=== PATIENT | female | born 1980 | race Caucasian/White ===

== ENCOUNTER 2017-02-08 23:09 | Emergency (ER) | payer OTHER ==
[2017-02-08] MEDS ORDERED: Phenazopyridine 95 MG Tab PO ONE (23:43)
[2017-02-08] MEDS ORDERED: Ciprofloxacin 500 MG Tab PO ONE (23:43)
--- NOTE | 2017-02-08 23:43 | EDM.PDOC ---
ED HPI GENERAL MEDICAL PROBLEM - General Chief Complaint: Genitourinary Problem Stated Complaint: UTI Time Seen by Provider: 02/08/17 23:40 Source of Information: Reports: Patient History Limitations: Reports: No Limitations - History of Present Illness INITIAL COMMENTS - FREE TEXT/NARRATIVE: c/o recurrent UTI Sx since Sunday, worse tonight - Related Data Allergies Allergy/AdvReac Type Severity Reaction Status Date / Time No Known Allergies Allergy Verified 02/08/17 23:20 Home Meds: Home Meds . [No Known Home Meds] 06/17/15 [History] Past Medical History DIRECTOR MULTIMEDIA History: Reports: Spontaneous , Other (See Below) Other OB/BYN History: D&C Social & Family History - Family History Family Medical History: Noncontributory - Tobacco Use Smoking Status *Q: Never Smoker Used Tobacco, but Quit: Yes Month Tobacco Last Used: 2004 Second Hand Smoke Exposure: No - Caffeine Use Caffeine Use: Reports: Coffee - Recreational Drug Use Recreational Drug Use: No - Sexual History Sexual History: Reports: Sexually Active - Living Situation & Occupation Living situation: Reports: , with Family Occupation: Employed ED ROS GENERAL - Review of Systems Review Of Systems: ROS reveals no pertinent complaints other than HPI. ED EXAM, RENAL/ - Physical Exam Exam: See Below Exam Limited By: No Limitations General Appearance: Alert, WD/WN, Mild Distress, Other (discomfort) Ears: Hearing Grossly Normal Throat/Mouth: Normal Voice, No Airway Compromise Head: Atraumatic Neck: Non-Tender, Full Range of Motion Respiratory/Chest: No Respiratory Distress Cardiovascular: Regular Rate, Rhythm GI/Abdominal: Soft, Other (suprapubic discomfort) Neurological: Alert, Oriented, Normal Cognition, Normal Gait, No Motor/Sensory Deficits Psychiatric: Normal Affect, Normal Mood Skin Exam: Warm, Dry, Normal Color Lymphatic: No Adenopathy Course - Orders/Labs/Meds Orders: Active Orders 24 hr Category Date Time Status UA W/MICROSCOPIC [URIN] Stat Lab 02/08/17 23:18 Results Labs: Laboratory Tests 02/08/17 Range/Units 23:18 Urine Color Yellow (YELLOW) Urine Appearance Slightly cloudy (CLEAR) Urine pH 5.0 (5.0-9.0) Ur Specific [place] 1.025 (1.005-1.030) Urine Protein Negative (NEGATIVE) Urine Glucose (UA) Negative (NEGATIVE) Urine Ketones Negative (NEGATIVE) Urine Occult Blood Negative (NEGATIVE) Urine Nitrite Positive H (NEGATIVE) Urine Bilirubin Small H (NEGATIVE) Urine Urobilinogen 0.2 (0.2-1.0) mg/dL Ur Leukocyte Esterase Trace H (NEGATIVE) - Re-Assessments/Exams Free Text/Narrative Re-Assessment/Exam: 02/08/17 23:42 results discussed with pt. Departure - Departure Time of Disposition: 23:42 Disposition: Home, Self-Care 01 Condition: Good Clinical Impression: UTI, Urinary tract infectious disease - Discharge Information Instructions: Urinary Tract Infection, Adult, [id number] Additional Instructions: 1) drink lot of liquids 2) follow up at clinic or recheck as needed rx given; [id number] bid x 3 days pyridium 100mg tid prn x 12 - My Orders Last 24 Hours: My Active Orders 02/08/17 23:18 UA W/MICROSCOPIC [URIN] Stat - Assessment/Plan Last 24 Hours: My Active Orders 02/08/17 23:18 UA W/MICROSCOPIC [URIN] Stat
[2017-02-09 00:10] VITALS: BP 112/73
== END 2017-02-08 23:58 | disposition home or self-care (01) ==
LOC: DL.ED 23:09
DX: N39.0 Urinary tract infection, site not specified (principal)
CPT/HCPCS: 81001; 99283; A9270

== ENCOUNTER 2019-04-02 23:33 | Emergency (ER) | payer OTHER ==
[2019-04-03] MEDS ORDERED: Albuterol 0.083% 2.5 MG/3 ML Neb Soln NEB ONE (00:02)
[2019-04-03 00:31] LABS: ANION GAP 12.3; CHLORIDE,CL 102 mmol/L (101-111); SODIUM,NA 138 mmol/L (135-145)
[2019-04-03 00:38] VITALS: BP 112/69; PULSE 73
--- NOTE | 2019-04-03 00:43 | EDM.PDOC ---
ED HPI GENERAL MEDICAL PROBLEM - General Chief Complaint: General Stated Complaint: TIGHTNESS IN CHEST, TINGLING IN HANDS Time Seen by Provider: 04/02/19 23:40 Source of Information: Reports: Patient, Family History Limitations: Reports: No Limitations - History of Present Illness INITIAL COMMENTS - FREE TEXT/NARRATIVE: ED with c/o feeling SOB and tingling in hands, feel like little pin pricks. Chest feel tight across, started tonight. Rolled windows down in car to see if would help. 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 no cough. No indigestion. 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 Family hx so testing. done. Denies hx of anxiety, ( nodding yes). Admits recent stress but issue resolved. Has recently decreased caffeine intake. Non smoker. No recent dieting reported. - Related Data Allergies Allergy/AdvReac Type Severity Reaction Status Date / Time No Known Allergies Allergy Verified 04/02/19 23:56 Home Meds: Home Meds . [No Known Home Meds] 06/17/15 [History] Past Medical History HEENT History: Reports: None Cardiovascular History: Reports: None Respiratory History: Reports: None Gastrointestinal History: Reports: None Genitourinary History: Reports: None MOUSE BREEDER History: Reports: Spontaneous , Other (See Below) Other MOUSE BREEDER History: D&C Musculoskeletal History: Reports: None Neurological History: Reports: None Psychiatric History: Reports: None Endocrine/Metabolic History: Reports: None Hematologic History: Reports: None Immunologic History: Reports: None Oncologic (Cancer) History: Reports: None Dermatologic History: Reports: None - Infectious Disease History Infectious Disease History: Reports: None - Past Surgical History Head Surgeries/Procedures: Reports: None HEENT Surgical History: Reports: None Cardiovascular Surgical History: Reports: None Respiratory Surgical History: Reports: None GI Surgical History: Reports: None Female Surgical History: Reports: None Endocrine Surgical History: Reports: None Neurological Surgical History: Reports: None Musculoskeletal Surgical History: Reports: None Oncologic Surgical History: Reports: None Dermatological Surgical History: Reports: None Social & Family History - Family History Family Medical History: Noncontributory - Tobacco Use Smoking Status *Q: Never Smoker - Caffeine Use Caffeine Use: Reports: Coffee, Soda - Recreational Drug Use Recreational Drug Use: No - Sexual History Sexual History: Reports: Sexually Active - Living Situation & Occupation Living situation: Reports: , with Family Occupation: Employed ED ROS GENERAL - Review of Systems Review Of Systems: See Below Constitutional: Reports: No Symptoms HEENT: Reports: No Symptoms Respiratory: Reports: Shortness of Breath. Denies: Wheezing, Pleuritic Chest Pain, Cough Cardiovascular: Reports: Lightheadedness. Denies: Chest Pain, Dyspnea on Exertion, Edema, Palpitations Endocrine: Reports: Other (hx hashimotos dx by lab, no sx. ) GI/Abdominal: Reports: No Symptoms : Reports: No Symptoms Skin: Reports: No Symptoms Psychiatric: Reports: Anxiety (admits some mild in past but none currently) ED EXAM, GENERAL - Physical Exam Exam: See Below Exam Limited By: No Limitations General Appearance: Alert, Anxious Eye Exam: Bilateral Eye: EOMI, PERRL Ears: Normal External Exam Nose: Normal Inspection Throat/Mouth: Normal Inspection, Normal Lips, Normal Voice Head: Atraumatic, Normocephalic Neck: Normal Inspection, Supple, Full Range of Motion. No: Lymphadenopathy (L) , Lymphadenopathy (R) Respiratory/Chest: No Respiratory Distress, Lungs Clear, Decreased Breath Sounds (slight). No: Crackles, Rales, Rhonchi, Wheezing Cardiovascular: Normal Peripheral Pulses, Regular Rate, Rhythm, Bradycardia GI/Abdominal: Normal Bowel Sounds, Soft Back Exam: Full Range of Motion Extremities: Normal Inspection. No: Joint Swelling, Limited Range of Motion, Pallor, Redness Neurological: Alert, Oriented, Normal Cognition, Normal Gait Psychiatric: Anxious Skin Exam: Warm, Dry, Intact, Normal Color. No: Cool, Diaphoretic, Erythema, Pallor, Rash, Wound/Incision EKG INTERPRETATION Rhythm: Other (sinus silvina) Course - Vital Signs Last Recorded V/S: Last Vital Signs Temp 97.7 F 04/03/19 00:37 Pulse 73 04/03/19 00:37 Resp 18 04/03/19 00:37 BP 112/69 04/03/19 00:37 Pulse Ox 98 04/03/19 00:37 - Orders/Labs/Meds Labs: Laboratory Tests 04/03/19 04/03/19 04/03/19 Range/Units 00:05 00:05 00:05 WBC 5.9 (5.0-10.0) 10^3/uL RBC 4.14 L (4.2-5.4) 10^6/uL Hgb 12.6 (12.0-16.0) g/dL Hct 37.7 (37.0-47.0) % MCV 91.1 (80-100) fL MCH 30.4 (27.0-34.0) pg MCHC 33.4 (33.0-35.0) g/dL Plt Count 170 (150-450) 10^3/uL Neut % (Auto) 47.0 (42.2-75.2) % Lymph % (Auto) 42.5 (20.5-50.1) % [place] % (Auto) 8.2 H (2-8) % Eos % (Auto) 2.0 (1.0-3.0) % Baso % (Auto) 0.3 (0.0-1.0) % PT 10.1 (9.0-12.0) SEC INR 1.0 (0.9-1.2) D-Dimer, Quantitative < 100 (0-400) ng/mL Sodium 138 (135-145) mmol/L Potassium 3.3 L (3.6-5.0) mmol/L Chloride 102 (101-111) mmol/L Carbon Dioxide 27.0 (21.0-31.0) mmol/L Anion Gap 12.3 BUN 19 H (7-18) mg/dL Creatinine 0.7 (0.6-1.3) mg/dL Est Cr Clr Drug Dosing 95.94 mL/min Estimated GFR (MDRD) > 60 BUN/Creatinine Ratio 27.14 Glucose 99 (74-105) mg/dL Calcium 8.7 (8.4-10.2) mg/dl Magnesium 1.7 L (1.8-2.5) mg/dL Total Bilirubin 0.7 (0.2-1.0) mg/dL AST 17 (10-42) IU/L ALT 14 (10-60) IU/L Alkaline Phosphatase 48 (42-121) IU/L Total Protein 6.8 (6.7-8.2) g/dl Albumin 4.0 (3.2-5.5) g/dl Globulin 2.8 Albumin/Globulin Ratio 1.43 TSH, Ultra Sensitive (0.45-5.33) uIu/mL HCG, Qual Negative 04/03/19 Range/Units 00:05 WBC (5.0-10.0) 10^3/uL RBC (4.2-5.4) 10^6/uL Hgb (12.0-16.0) g/dL Hct (37.0-47.0) % MCV (80-100) fL MCH (27.0-34.0) pg MCHC (33.0-35.0) g/dL Plt Count (150-450) 10^3/uL Neut % (Auto) (42.2-75.2) % Lymph % (Auto) (20.5-50.1) % [place] % (Auto) (2-8) % Eos % (Auto) (1.0-3.0) % Baso % (Auto) (0.0-1.0) % PT (9.0-12.0) SEC INR (0.9-1.2) D-Dimer, Quantitative (0-400) ng/mL Sodium (135-145) mmol/L Potassium (3.6-5.0) mmol/L Chloride (101-111) mmol/L Carbon Dioxide (21.0-31.0) mmol/L Anion Gap BUN (7-18) mg/dL Creatinine (0.6-1.3) mg/dL Est Cr Clr Drug Dosing mL/min Estimated GFR (MDRD) BUN/Creatinine Ratio Glucose (74-105) mg/dL Calcium (8.4-10.2) mg/dl Magnesium (1.8-2.5) mg/dL Total Bilirubin (0.2-1.0) mg/dL AST (10-42) IU/L ALT (10-60) IU/L Alkaline Phosphatase (42-121) IU/L Total Protein (6.7-8.2) g/dl Albumin (3.2-5.5) g/dl Globulin Albumin/Globulin Ratio TSH, Ultra Sensitive 8.23 H (0.45-5.33) uIu/mL HCG, Qual Meds: Medications Discontinued Medications Generic Name Dose Route Start Last Admin Trade Name Freq PRN Reason Stop Dose Admin Albuterol 2.5 mg 04/03/19 00:02 04/03/19 00:13 Proventil Neb Soln NEB 04/03/19 00:03 2.5 mg ONETIME ONE Administration Potassium Chloride 20 meq 04/03/19 00:59 04/03/19 01:08 Klor-Con 10 PO 04/03/19 01:00 20 meq ONETIME ONE Administration Departure - Departure Time of Disposition: 01:00 Disposition: Home, Self-Care 01 Condition: Good Clinical Impression: SOB (shortness of breath), Hypokalemia, Hx of Mayur thyroiditis Hypothyroid Qualifiers: Hypothyroidism type: unspecified Qualified Code(s): E03.9 - Hypothyroidism, unspecified - Discharge Information *PRESCRIPTION DRUG MONITORING PROGRAM REVIEWED*: No *COPY OF PRESCRIPTION DRUG MONITORING REPORT IN PATIENT TOYA: No Instructions: Hypokalemia, Hypothyroidism Forms: ED Department Discharge Additional Instructions: Synthroid 50mcg one daily Follow up with perl software engineer and primary care increase potassium in diet recheck in clinic one week albuterol inhaler every 4 hours as needed change positions carefully increase fluid intake
[2019-04-03] MEDS ORDERED: Potassium Chloride 10 MEQ Tab.ER PO ONE (00:59)
== END 2019-04-03 01:09 | disposition home or self-care (01) ==
LOC: DL.ED 23:33
DX: R06.02 Shortness of breath (principal); E87.6 Hypokalemia; E03.9 Hypothyroidism, unspecified; Z86.39 Personal history of other endocrine, nutritional and metabolic disease
CPT/HCPCS: 36415; 80053; 83735; 84443; 84703; 85025; 85379; 85610; 93005; 94640; 99285; A9270; J7613-GY

== ENCOUNTER 2019-04-06 19:29 | Emergency (ER) | payer OTHER ==
[2019-04-06 19:40] VITALS: BP 111/61; PULSE 62
[2019-04-06] MEDS ORDERED: methylPREDNISolone Sodium Succinate 125 MG/2 ML SDV IVPUSH ONE (20:12)
[2019-04-06] MEDS ORDERED: Albuterol/Ipratropium 3.0-0.5 MG/3 ML Neb Soln NEB ONE (20:12)
[2019-04-06 20:14] LABS: ANION GAP 12.2; CHLORIDE,CL 103 mmol/L (101-111); SODIUM,NA 139 mmol/L (135-145)
--- NOTE | 2019-04-06 20:19 | EDM.PDOC ---
ED HPI GENERAL MEDICAL PROBLEM - General Chief Complaint: Respiratory Problem Stated Complaint: HARD TO BREATH, TIGHT NESS IN CHEST. Time Seen by Provider: 04/06/19 20:12 Source of Information: Reports: Patient History Limitations: Reports: No Limitations - History of Present Illness INITIAL COMMENTS - FREE TEXT/NARRATIVE: was here few days ago for same. did notice neb helped but not for long. first incidence of SOB occurred 12 years ago and was stationed in [place] at the time. before that she never this problem. since then she has seen several MDs and had several w/u. been Dx with Mayur and also reactive airway disease. is already taking thyrox and has rescue inhaler. also noticed that when her HR is higher she feels better. In fact she feels better when she is physically active. states SOB comes mostly at night but all this week it has been constant. works in [employer] and is not stressed at all. 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 , Other (See Below) Other UTILIZATION MANAGEMENT MANAGER History: D&C Musculoskeletal History: Reports: None Neurological History: Reports: None Psychiatric History: Reports: None Endocrine/Metabolic History: Reports: Hypothyroidism Hematologic History: Reports: None Immunologic History: Reports: None Oncologic (Cancer) History: Reports: None Dermatologic History: Reports: None - Infectious Disease History Infectious Disease History: Reports: None - Past Surgical History Head Surgeries/Procedures: Reports: None HEENT Surgical History: Reports: None Cardiovascular Surgical History: Reports: None Respiratory Surgical History: Reports: None GI Surgical History: Reports: None Female Surgical History: Reports: None Endocrine Surgical History: Reports: None Neurological Surgical History: Reports: None Musculoskeletal Surgical History: Reports: None Oncologic Surgical History: Reports: None Dermatological Surgical History: Reports: None Social & Family History - Family History Family Medical History: Noncontributory - Tobacco Use Smoking Status *Q: Current Status Unknown Second Hand Smoke Exposure: No - Caffeine Use Caffeine Use: Reports: Coffee - Recreational Drug Use Recreational Drug Use: No - Sexual History Sexual History: Reports: Sexually Active - Living Situation & Occupation Living situation: Reports: , with Family Occupation: Employed ED ROS GENERAL - Review of Systems Review Of Systems: ROS reveals no pertinent complaints other than HPI. ED EXAM, GENERAL - Physical Exam Exam: See Below Exam Limited By: No Limitations General Appearance: Alert, WD/WN, Anxious, Mild Distress, Other (upset) Ears: Hearing Grossly Normal Throat/Mouth: Normal Voice, No Airway Compromise Head: Atraumatic Neck: Non-Tender, Full Range of Motion Respiratory/Chest: No Respiratory Distress, Lungs Clear, Normal Breath Sounds, No Accessory Muscle Use. No: Decreased Breath Sounds, Crackles, Rales, Rhonchi , Wheezing, Stridor, Prolonged Expiration Cardiovascular: Regular Rate, Rhythm GI/Abdominal: Soft, Non-Tender Neurological: Alert, Oriented, Normal Cognition, Normal Gait, No Motor/Sensory Deficits Psychiatric: Anxious Skin Exam: Warm, Dry, Normal Color Lymphatic: No Adenopathy Course - Vital Signs Last Recorded V/S: Last Vital Signs Temp 36.8 C 04/06/19 19:38 Pulse 62 04/06/19 19:38 Resp 13 04/06/19 19:38 BP 111/61 04/06/19 19:38 Pulse Ox 100 04/06/19 19:38 - Orders/Labs/Meds Orders: Active Orders 24 hr Category Date Time Status EKG 12 Lead [EKG Documentation Completion] [RC] STAT Care 04/06/19 19:42 Active RT Aerosol Therapy [RC] ASDIRECTED Care 04/06/19 20:12 Active TSH ULTRASENSITIVE [CHEM] Stat Lab 04/06/19 19:50 Received Labs: Laboratory Tests 04/06/19 04/06/19 04/06/19 Range/Units 19:50 19:50 19:50 WBC 5.2 (5.0-10.0) 10^3/uL RBC 4.06 L (4.2-5.4) 10^6/uL Hgb 12.3 (12.0-16.0) g/dL Hct 37.3 (37.0-47.0) % MCV 91.9 (80-100) fL MCH 30.3 (27.0-34.0) pg MCHC 33.0 (33.0-35.0) g/dL Plt Count 138 L (150-450) 10^3/uL Neut % (Auto) 52.0 (42.2-75.2) % Lymph % (Auto) 39.8 (20.5-50.1) % [place] % (Auto) 6.3 (2-8) % Eos % (Auto) 1.5 (1.0-3.0) % Baso % (Auto) 0.4 (0.0-1.0) % D-Dimer, Quantitative < 100 (0-400) ng/mL Sodium 139 (135-145) mmol/L Potassium 3.2 L (3.6-5.0) mmol/L Chloride 103 (101-111) mmol/L Carbon Dioxide 27.0 (21.0-31.0) mmol/L Anion Gap 12.2 BUN 14 (7-18) mg/dL Creatinine 0.7 (0.6-1.3) mg/dL Est Cr Clr Drug Dosing 95.94 mL/min Estimated GFR (MDRD) > 60 BUN/Creatinine Ratio 20.00 Glucose 125 H (74-105) mg/dL Calcium 8.8 (8.4-10.2) mg/dl Magnesium (1.8-2.5) mg/dL Total Bilirubin 0.7 (0.2-1.0) mg/dL AST 19 (10-42) IU/L ALT 12 (10-60) IU/L Alkaline Phosphatase 55 (42-121) IU/L Troponin I 0.00 (0.00-0.08) ng/mL Total Protein 6.7 (6.7-8.2) g/dl Albumin 3.8 (3.2-5.5) g/dl Globulin 2.9 Albumin/Globulin Ratio 1.31 HCG, Qual Negative 04/06/19 Range/Units 19:50 WBC (5.0-10.0) 10^3/uL RBC (4.2-5.4) 10^6/uL Hgb (12.0-16.0) g/dL Hct (37.0-47.0) % MCV (80-100) fL MCH (27.0-34.0) pg MCHC (33.0-35.0) g/dL Plt Count (150-450) 10^3/uL Neut % (Auto) (42.2-75.2) % Lymph % (Auto) (20.5-50.1) % [place] % (Auto) (2-8) % Eos % (Auto) (1.0-3.0) % Baso % (Auto) (0.0-1.0) % D-Dimer, Quantitative (0-400) ng/mL Sodium (135-145) mmol/L Potassium (3.6-5.0) mmol/L Chloride (101-111) mmol/L Carbon Dioxide (21.0-31.0) mmol/L Anion Gap BUN (7-18) mg/dL Creatinine (0.6-1.3) mg/dL Est Cr Clr Drug Dosing mL/min Estimated GFR (MDRD) BUN/Creatinine Ratio Glucose (74-105) mg/dL Calcium (8.4-10.2) mg/dl Magnesium 1.8 (1.8-2.5) mg/dL Total Bilirubin (0.2-1.0) mg/dL AST (10-42) IU/L ALT (10-60) IU/L Alkaline Phosphatase (42-121) IU/L Troponin I (0.00-0.08) ng/mL Total Protein (6.7-8.2) g/dl Albumin (3.2-5.5) g/dl Globulin Albumin/Globulin Ratio HCG, Qual Meds: Medications Discontinued Medications Generic Name Dose Route Start Last Admin Trade Name Freq PRN Reason Stop Dose Admin Albuterol/Ipratropium 3 ml 04/06/19 20:12 04/06/19 20:22 Duoneb 3.0-0.5 Mg/3 Ml NEB 04/06/19 20:13 3 ml ONETIME ONE Administration Methylprednisolone Sodium Succinate 125 mg 04/06/19 20:12 04/06/19 20:22 Solu-Medrol IVPUSH 04/06/19 20:13 125 mg ONETIME ONE Administration - Re-Assessments/Exams Free Text/Narrative Re-Assessment/Exam: 04/06/19 21:28 re-exam; s/p duoneb + IV solumed = much better Departure - Departure Time of Disposition: 21:29 Disposition: Home, Self-Care 01 Condition: Good Clinical Impression: SOB (shortness of breath), Hx of Mayur thyroiditis - Discharge Information Forms: ED Department Discharge Additional Instructions: 1) follow up at clinic for HOLTER MONITOR 2) recheck if there is any change or concern rx allegra; jose rafael dospak - My Orders Last 24 Hours: My Active Orders 04/06/19 19:42 EKG 12 Lead [EKG Documentation Completion] [RC] STAT 04/06/19 19:50 TSH ULTRASENSITIVE [CHEM] Stat 04/06/19 20:12 RT Aerosol Therapy [RC] ASDIRECTED - Assessment/Plan Last 24 Hours: My Active Orders 04/06/19 19:42 EKG 12 Lead [EKG Documentation Completion] [RC] STAT 04/06/19 19:50 TSH ULTRASENSITIVE [CHEM] Stat 04/06/19 20:12 RT Aerosol Therapy [RC] ASDIRECTED
== END 2019-04-06 21:35 | disposition home or self-care (01) ==
LOC: DL.ED 19:29
DX: R06.02 Shortness of breath (principal); J45.909 Unspecified asthma, uncomplicated; E03.9 Hypothyroidism, unspecified; Z86.39 Personal history of other endocrine, nutritional and metabolic disease; Z79.890 Hormone replacement therapy
CPT/HCPCS: 36415; 80053; 83735; 84443; 84484; 84703; 85025; 85379; 93005; 96374; 99284; J2930; J7620-GY

== ENCOUNTER 2019-04-11 02:34 | Emergency (ER) | payer OTHER ==
[2019-04-11 02:34] VITALS: BP 111/92; PULSE 72
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
== END 2019-04-11 03:18 | disposition home or self-care (01) ==
LOC: DL.ED 02:34
DX: R06.02 Shortness of breath (principal); J45.909 Unspecified asthma, uncomplicated; E03.9 Hypothyroidism, unspecified; Z86.39 Personal history of other endocrine, nutritional and metabolic disease; Z79.890 Hormone replacement therapy
CPT/HCPCS: 99284